=== PATIENT | female | born 1935 | race Caucasian/White ===

== ENCOUNTER 2017-12-26 06:36 | Emergency (ER) | payer MEDICARE, OTHER ==
[2017-12-26] MEDS ORDERED: ACETAMINOPHEN 325 MG TABLET PO ONE (07:04)
--- NOTE | 2017-12-26 07:23 | ER Document Report ---
ED Extremity Problem, Upper - General Chief Complaint: Arm Injury Stated Complaint: FALL/ ARM PAIN Time Seen by Provider: 12/26/17 07:15 Mode of Arrival: Ambulatory Information source: Patient, Relative Notes: Patient is a 82-year-old white female comes emergency room complaining of left arm pain. Patient states that she was sitting outside her house last night because they have no air conditioning or electricity. She was asked by her to get something from the house she got up, walked in the house when she came back she missed the first of 2 steps and fell forward landing on a cement slab on her left shoulder. Patient was able to get up and ambulate without any problem. Her arm did hurt and started to swell slightly but she just thought she bruised it. She did have difficulty moving it but again just thought it was bruised. Her made her a makeshift sling and she was able to get through the night but with discomfort. This morning when she woke up the left arm was swollen and had a large bump that was black and blue. Patient decided to come to ER to have it checked out. She denies any other injuries she did not hit her head or have any loss of consciousness. She is relatively healthy 82-year-old she has a history of hypertension and osteoarthritis but other than that patient is healthy. She denies any history of any cardiac events no history of COPD. She does not smoke drink or do narcotics. Patient also states that she does not like narcotic medication and does not want anything for pain currently. TRAVEL OUTSIDE OF THE [place] IN LAST 30 DAYS: No - HPI Patient complains to provider of: Left, Arm, Shoulder Onset: Yesterday Recent injury: Yes Where: Home Quality of pain: Sharp, Throbbing Severity of pain: Moderate, Still present Pain Level: 2 Context: Blow, Other - A trip and fall Arm and Shoulder (Left): 1 - Area of pain discomfort with hematoma inferior to that area fairly large at about 6 cm x 12 cm Associated symptoms: None Exacerbated by: Movement Relieved by: Positioning Similar symptoms previously: No Recently seen / treated by doctor: No - Related Data Allergies/Adverse Reactions: No Known Allergies Allergy (Unverified 12/26/17 07:22) Past Medical History - General Information source: Patient, Relative - Social History Smoking Status: Never Smoker Chew tobacco use (# tins/day): No Smoking Education Provided: No Frequency of alcohol use: None Drug Abuse: None Lives with: Family, Spouse/Significant other Family History: Reviewed & Not Pertinent Patient has suicidal ideation: No Patient has homicidal ideation: No - Past Medical History Cardiac Medical History: Reports: Hx Hypercholesterolemia, Hx Hypertension Renal/ Medical History: Denies: Hx Peritoneal Dialysis Musculoskeletal Medical History: Reports Hx Arthritis Review of Systems - Review of Systems Constitutional: No symptoms reported EENT: No symptoms reported Cardiovascular: No symptoms reported Respiratory: No symptoms reported Gastrointestinal: No symptoms reported Genitourinary: No symptoms reported Female Genitourinary: No symptoms reported Musculoskeletal: See HPI, Joint pain, Joint swelling, Muscle pain Skin: Other - Ecchymosis Hematologic/Lymphatic: No symptoms reported Neurological/Psychological: No symptoms reported -: Yes All other systems reviewed and negative Physical Exam - Vital signs Vitals: Temp Pulse Resp BP Pulse Ox 97.4 F 68 18 157/117 H 93 12/26/17 06:36 12/26/17 06:36 12/26/17 06:36 12/26/17 06:36 12/26/17 06:36 Interpretation: Hypertensive - Notes Notes: Patient is an 82-year-old white female no apparent distress currently. She does appear somewhat uncomfortable holding her left arm into her body. - General General appearance: Alert In distress: None - HEENT Head: Normocephalic, Atraumatic Eyes: Normal Conjunctiva: Normal - Respiratory Respiratory status: No respiratory distress Chest status: Nontender Breath sounds: Normal. No: Rales, Rhonchi, Stridor, Wheezing Chest palpation: Normal - Cardiovascular Rhythm: Regular Heart sounds: Normal auscultation Murmur: No - Abdominal Inspection: Normal Distension: No distension Bowel sounds: Normal Tenderness: Nontender Organomegaly: No organomegaly - Back Back: Normal, Nontender. No: Vertebra tenderness - Extremities General upper extremity: Tender. No: Normal ROM, Normal strength Shoulder: Tender, Ecchymosis, Limited ROM. No: Deformity, Dislocation Arm: Tender, Ecchymosis, Other - Examination of patient'sleft shoulder and upper arm shows moderate amount of tenderness to palpation around the AC joint further palpation on the upper humeral area does not show any indication that it is dislocated. Wrote patient of the arm is impossible secondary to discomfort and pain. Patient has a large hematoma just above the left biceps muscle that is very tender to palpation and slightly firm. Patient has good brachial pulse and distally patient has good radius and ulnar pulses. Good cap refill in the nailbeds of the left hand. 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 There is no abrasions or ecchymosis surrounding the left elbow. No sign of fracture at this time in that area. There is no crepitus felt with flexion and extension.. No: Nontender Elbow: Normal, Nontender, Limited ROM. No: Deformity, Dislocation, Ecchymosis, Instability, Joint effusion, Swollen bursa Forearm: Normal, Nontender. No: Tender Wrist: Normal, Nontender, Deformity Hand: Normal, Nontender Hip: Normal, Nontender Knee: Normal, Nontender - Neurological Neuro grossly intact: Yes Cognition: Normal Orientation: AAOx4 Paco Coma Scale Eye Opening: Spontaneous Paco Coma Scale Verbal: Oriented [place] Coma Scale Motor: Obeys Commands Paco Coma Scale Total: 15 Speech: Normal Course - Re-evaluation Re-evalutation: 12/26/17 09:13 Patient was placed in the shoulder immobilizer by the emergency room nurse it was checked by myself the ER as needed found to be in good position patient got moderate amount of relief when it was mobilized. Also note that patient has refused any narcotic medication for her discomfort and pain states that she only likes to use Tylenol. I have informed her that since it is the weekend I will write her a prescription for low-dose hydrocodone she may break it in half or take a full pill or if pain is excessive she may take 2 pills at a time. I informed her that this can make her groggy or sleepy dizzy and that she should take it starting with the lowest possible dose and building if she needs it. I have talked to both patient and inform them that I will be giving them the orthopedist production control analyst and that they can contact the office to set up an appointment. Both patient and state that their primary care providers and [place] and would like to follow-up down there. I have informed them that this type of injury does not require emergent intervention that the swelling needs to be reduced and that they have time to contact the orthopedist. I have informed him also to return to ER if she has any concerns or problems and to monitor her finger color and if for any reason it starts to discolor become cold return to ER for a recheck. 12/26/17 09:13 12/26/17 09:16 I have discussed the findings with Dr. Bryant he is in agreement with the shoulder immobilizer and follow-up outpatient. We will treat for pain. - Vital Signs Vital signs: Temp Pulse Resp BP Pulse Ox 97.4 F 68 18 157/117 H 93 12/26/17 06:36 12/26/17 06:36 12/26/17 06:36 12/26/17 06:36 12/26/17 06:36 Procedures - Immobilization Left Upper Shoulder Immobilizer type: Shoulder immobilizer Performed by: DOUGIE Post-Proc Neuro Vasc Exam: Normal, Unchanged from pre-exam Alignment checked and good: Yes - Good alignment noted Discharge - Discharge Clinical Impression: Proximal humeral fracture Qualifiers: Encounter type: initial encounter Fracture type: closed Fracture morphology: other fracture Fracture alignment: displaced Laterality: left Qualified Code(s) : S42.292A - Other displaced fracture of upper end of left humerus, initial encounter for closed fracture Condition: Stable Disposition: HOME, SELF-CARE Instructions: Fracture Proximal Humerus Additional Instructions: Home and rest. Ice to the area 3-4 times a day as we have discussed. As we also discussed need to use the immobilizer 100% of the time. Only time it should be removed is to change clothes. Highly suggest not taking a shower for possible slip and fall type of a injury to occur. As we have also discussed I have given you the name of the orthopedist production control analyst Dr. Begum and you may contact his office to see if he can accommodate you. I am also giving you a disc of your x-ray so you can take that with you as well as well as the reading of the x-rays. I have also writing you prescription for some light dose of pain medication. You may break the pill in half he may take 1/2-1 tablet every 4-6 hours as needed for pain if pain gets really severe you may take up to 2 tablets at a time. Just remember that this pain medication also has 325 mg of Tylenol and it do not want to exceed more than 3 total grams of Tylenol in 24 hour.. Should you have any concerns or problems return to ER for recheck. Watch the blood flow in the fingertips of the left hand if you squeeze the nail and then letting go he should see ago from a white color to flesh tone color within less than 2 seconds. If her hands to turn blue or have discomfort and pain return to ER for recheck. Prescriptions: Hydrocodone/Acetaminophen [[place] 5-325 mg Tablet] 1 tab PO Q4A #14 tablet Referrals: HEIDI BERMUDEZ MD [NO LOCAL MD] - Follow up as needed KENNA BEGUM DO [ACTIVE STAFF] - Follow up as needed
--- NOTE | 2017-12-26 07:29 | RADIOLOGY REPORT (SQ) ---
EXAM DESCRIPTION: XR HUMERUS COMPLETED DATE/TME: 12/26/2017 00:00 CLINICAL HISTORY: 82 years, Female, injury COMPARISON: None. FINDINGS: 2 views of the left humerus. Acute minimally displaced comminuted fracture of the proximal humerus with fracture lines extending through the surgical neck, greater tuberosity and humeral head. Osteopenia. No glenohumeral dislocation. IMPRESSION: 1. Acute minimally displaced comminuted fracture of the proximal humerus. 2011 [employer]- All Rights Reserved
[2017-12-26 09:17] VITALS: BP 176/71
== END 2017-12-26 09:33 | disposition home or self-care (01) ==
LOC: ER 06:36
DX: S42.292A Other displaced fracture of upper end of left humerus, initial encounter for closed fracture (principal); W10.9XXA Fall (on) (from) unspecified stairs and steps, initial encounter; Y92.008 Other place in unspecified non-institutional (private) residence as the place of occurrence of the external cause; I10 Essential (primary) hypertension; E78.00 Pure hypercholesterolemia, unspecified
CPT/HCPCS: 99283; 73060; L3650; A9270